=== PATIENT | female | born 1955 | race Caucasian/White ===

== ENCOUNTER 2017-08-19 11:34 | Emergency (ER) | payer OTHER ==
[2017-08-19 11:59] VITALS: BP 128/76; PULSE 80; TEMP 98.3; BMI 24.5
[2017-08-19] MEDS ORDERED: LORATADINE 10 MG TABLET ONE (12:43)
[2017-08-19] MEDS ORDERED: LORATADINE 10 MG TABLET PO ONE (12:49)
--- NOTE | 2017-08-19 12:49 | PDOC ---
History of Present Illness - General Chief Complaint: Edema Stated Complaint: SWOLLEN EYELIDS Time Seen by Provider: 08/19/17 12:00 History Source: Patient - History of Present Illness Timing/Duration: other (this am) Severity: moderate Past History - Past Medical History Allergies/Adverse Reactions: Allergies Allergy/AdvReac Type Severity Reaction Status Date / Time No Known Allergies Allergy Verified 08/19/17 11:56 Home Medications: Ambulatory Orders Loratadine [Claritin] 10 mg PO DAILY #15 tablet 08/19/17 CVA: No COPD: No - Surgical History Abdominal Surgery: Yes (tubal ligation) - Suicide/Smoking/Psychosocial Hx Smoking History: Never smoked Have you smoked in the past 12 months: No Information on smoking cessation initiated: No Hx Alcohol Use: No Drug/Substance Use Hx: No Substance Use Type: None Review of Systems - Review of Systems HEENTM: No: Blurred Vision, Tearing *Physical Exam - Vital Signs Last Vital Signs Temp Pulse Resp BP Pulse Ox 98.3 F 80 20 128/76 97 08/19/17 11:56 08/19/17 11:56 08/19/17 11:56 08/19/17 11:56 08/19/17 11:56 - Physical Exam General Appearance: Yes: Appropriately Dressed. No: Apparent Distress HEENT: positive: Other (significant edema to lower lids b/l w/ no erythema, tenderness or warmth, no conjunc erythema/chemosis). negative: Scleral Icterus (R), Scleral Icterus (L) Neck: positive: Supple Respiratory/Chest: negative: Respiratory Distress Integumentary: positive: Dry, Warm Neurologic: positive: Alert, Normal Mood/Affect Medical Decision Making - Medical Decision Making 08/19/17 12:46 62 yo F, no sig hx, here w/ bernard-orbital swelling this am. Awoke with itching, rubbed eyes and then noticed swelling after. No eye pain, tearing, discharge, tearing, fb sensation or blurry vision. No trauma or inciting agents. No h/o similar episode in the past. No known allergies. Pt in NAD w/ significant b/l periorbital edema c/w allergic reaction, no e/o infxn. Dc w/ cold compresses and non-sedating antihistamine. Reasons to return d/w pt 08/19/17 12:50 *DC/Admit/Observation/Transfer Diagnosis at time of Disposition: Allergic reaction Qualifiers: Encounter type: initial encounter Qualified Code(s): T78.40XA - Allergy, unspecified, initial encounter - Discharge Dispostion Disposition: HOME - Prescriptions Prescriptions: Loratadine [Claritin] 10 mg PO DAILY #15 tablet - Referrals Referrals: Marietta Lieberman [Primary Care Provider] - - Patient Instructions Additional Instructions: Usted tiene geeta reaccin alrgica a los ojos. Compre compresas fras sin receta en cualquier farmacia y aplique a los ojos de 3 a 4 veces al da oz 20 minutos cada vez. Tambin tome Claritin y Zyrtec diariamente hasta que los s ntomas desaparezcan y usted puede ronit Benadryl por las noches Abstenerse de frotarse los ojos ya que pueden empeorar los sntomas Volver a la ailyn de urgencias por empeoramiento de sntomas bridget dolor, enrojecimiento o fiebre - Post Discharge Activity Forms/Work/School Notes: Back to Work
== END 2017-08-19 12:50 | disposition home or self-care (01) ==
LOC: JERFT 11:34
DX: T78.40XA Allergy, unspecified, initial encounter (principal)
CPT/HCPCS: 99281-25